=== PATIENT | female | born 1960 | race American Indian/Alaskan Native ===

== ENCOUNTER 2017-11-14 09:09 | Outpatient (CLI) | payer BC ==
--- NOTE | 2017-11-15 10:09 | Mammography Report ---
BILATERAL DIGITAL SCREENING MAMMOGRAM with CAD: 11/14/17 09:09:00 CLINICAL: Routine screening. COMPARISON: None available. Her previous mammograms have been its JEFE. FINDINGS: The breasts are mostly fatty with bilateral residual retroareolar fibroglandular densities.No mass, architectural distortion or suspicious calcifications. IMPRESSION: No mammographic evidence of malignancy. BI-RADS CATEGORY: 1 -- Negative RECOMMENDATION: Routine mammographic screening in one year. COMMENT: Patient follow-up letters are generated by our [employer] application.
== END 2017-11-14 09:10 | disposition home or self-care (01) ==
LOC: SPVWC 09:09
PROVIDERS: ATTEND Internal Medicine
DX: Z12.31 Encounter for screening mammogram for malignant neoplasm of breast (principal); I10 Essential (primary) hypertension; J45.909 Unspecified asthma, uncomplicated
CPT/HCPCS: 77067; G0202

== ENCOUNTER 2018-01-30 10:30 | Outpatient (CLI) | payer BC ==
--- NOTE | 2018-01-30 11:28 | XRay Report ---
XRAY CHEST TWO VIEWS: 01/30/18 10:30:00 CLINICAL: Cough. COMPARISON: 01/08/11 FINDINGS: Normal heart and pulmonary vasculature. The lungs are normally expanded and clear.Degenerative change in the spine. IMPRESSION: No acute cardiopulmonary process.
== END 2018-01-30 10:31 | disposition home or self-care (01) ==
LOC: SPVIMAG 10:30
PROVIDERS: ATTEND Internal Medicine
DX: R05 Cough (principal); M47.894 Other spondylosis, thoracic region
CPT/HCPCS: 71046

== ENCOUNTER 2020-11-11 14:31 | Emergency (ER) | payer BC ==
--- NOTE | 2020-11-11 14:35 | Emergency Department Report ---
Blank Doc - Documentation Documentation: 60-year-old female that presents with bilateral hand/wrist dog bites. Animal control notified. Denies knowing if rabies active. This initial assessment/diagnostic orders/clinical plan/treatment(s) is/are subject to change based on patient's health status, clinical progression and re- assessment by fellow clinical providers in the ED. Further treatment and workup at subsequent clinical providers discretion. Patient/guardians urged not to elope from the ED as their condition may be serious if not clinically assessed and managed. Initial orders include: 1- Patient sent to [facility] for further evaluation and treatment 2- xrays 3- rabies vaccines
[2020-11-11 14:39] VITALS: BP 144/79
--- NOTE | 2020-11-11 15:12 | XRay Report ---
BOTH HANDS 6 VIEWS INDICATION / CLINICAL INFORMATION: bog bite please add right wrist. COMPARISON: None available. FINDINGS: Bandage overlies the right hand. There is soft tissue swelling of the right thumb and index finger, b ut I see no fracture or other skeletal abnormality. No radiopaque foreign bodies. Signer Name: Tab Cisneros MD Signed: 11/11/2020 3:08 PM Workstation Name: [id number]
[2020-11-11] MEDS ORDERED: SODIUM CHLORIDE IRRI 500 ML 1,000 ML IR ONE (15:16)
[2020-11-11] MEDS ORDERED: cephALEXin 500 MG CAP PO ONE (15:21)
[2020-11-11] MEDS ORDERED: RABIES IMMUNE GLOBULIN P/F 300 UNIT/ML INJ 5 ML IM ONE (15:21)
[2020-11-11] MEDS ORDERED: oxyCODONE /ACETAMINOPHEN 5-325MG TAB PO ONE (15:21)
[2020-11-11] MEDS ORDERED: DIPHtheria,PERTUSSIS(ACELL),TETANUS VACCINE/PF 0.5 ML VIAL IM ONE (15:21)
--- NOTE | 2020-11-11 15:21 | Emergency Department Report ---
ED Animal Bite HPI - General Chief Complaint: Animal Bite Stated Complaint: BILATERAL HAND/DOG BITE Time Seen by Provider: 11/11/20 14:32 Source: patient Mode of arrival: Ambulatory Limitations: No Limitations - History of Present Illness Initial Comments: Patient is a 60-year-old that comes to the ER after being attacked by her neighbors yojana. Patient states animal control was called. Immunization of the dog is not known. Patient wants to receive rabies vaccines. She will also need a Tdap. Patient has puncture wounds and lacerations to bilateral hands. On the right hand it involves her involves the dorsal and palmar surface. Left hand involves the palmar surface. Wounds were wrapped in triage bleeding controlled. MD Complaint: animal bite -: Sudden, hour(s) Left: Hand, Right: Hand Animal: dog Animal Control Notified: Yes Description: household pet Mechanism: bite Pain Description: sharp Context: unprovoked Associated Symptoms: none Treatments Prior to Arrival: wound dressing(s) - Related Data Patient Tetanus UTD: No Previous Rx's Medication Instructions Recorded Last Taken Type cephALEXin [Keflex] 500 mg PO Q8H #30 cap 11/11/20 Unknown Rx traMADoL [Ultram] 50 mg PO Q6HR PRN #10 tablet 11/11/20 Unknown Rx Allergies Allergy/AdvReac Type Severity Reaction Status Date / Time codeine Allergy Rash Verified 12/05/14 16:56 ondansetron HCl Allergy Itching Verified 12/05/14 16:56 [From Zofran (as hydrochloride)] Penicillins Allergy Rash Verified 12/05/14 16:56 Sulfa (Sulfonamide Allergy Rash Verified 12/05/14 16:56 Antibiotics) ED Review of Systems ROS: Stated complaint: BILATERAL HAND/DOG BITE Other details as noted in HPI Comment: All other systems reviewed and negative ED Past Medical Hx - Past Medical History Previous Medical History?: Yes Hx Hypertension: Yes Hx Asthma: Yes Additional medical history: colitis (sees Dr. Gunn) - Surgical History Past Surgical History?: No - Family History Family history: no significant - Social History Smoking Status: Never Smoker Substance Use Type: None - Medications Home Medications: Home Medications Medication Instructions Recorded Confirmed Last Taken Type cephALEXin [Keflex] 500 mg PO Q8H #30 cap 11/11/20 Unknown Rx traMADoL [Ultram] 50 mg PO Q6HR PRN #10 tablet 11/11/20 Unknown Rx ED Physical Exam - General Limitations: No Limitations General appearance: alert, in no apparent distress - Head Head exam: Present: atraumatic, normocephalic - Eye Eye exam: Present: normal appearance - ENT ENT exam: Present: mucous membranes moist - Neck Neck exam: Present: normal inspection - Respiratory Respiratory exam: Present: normal lung sounds bilaterally. Absent: respiratory distress - Cardiovascular Cardiovascular Exam: Present: regular rate, normal rhythm. Absent: systolic murmur, diastolic murmur, rubs, gallop - GI/Abdominal GI/Abdominal exam: Present: soft, normal bowel sounds - Extremities Exam Extremities exam: Present: normal inspection - Back Exam Back exam: Present: normal inspection - Neurological Exam Neurological exam: Present: alert, oriented X3 - Psychiatric Psychiatric exam: Present: normal affect, normal mood - Skin Skin exam: Present: warm, dry, other (Patient has numerous puncture wounds on bilateral hands, right greater than left. Patient has full range of motion of all digits and wrist. Radial ulnar and medial nerves intact. Sensation intact. Radial and ulnar pulses intact. Bleeding controlled.). Absent: rash ED Course Vital Signs 11/11/20 14:36 Temperature 97.5 F L Pulse Rate 83 Respiratory 18 Rate Blood Pressure 144/79 O2 Sat by Pulse 99 Oximetry - Reevaluation(s) Reevaluation #1: 11/11/20 15:54 Has been noted. Tdap given. Wound care given Rabies given per pharmacy recommendations and regimen. Patient educated on follow-up care that she requires. She verbalizes understanding. Critical care attestation.: If time is entered above; I have spent that time in minutes in the direct care of this critically ill patient, excluding procedure time. ED Disposition Clinical Impression: Dog bite, Open wounds of multiple sites of hand, Rabies vaccine adverse reaction Disposition: DC-01 TO HOME OR SELFCARE Is pt being admited?: No Does the pt Need Aspirin: No Condition: Stable Instructions: Animal Bite, Adult, [id number], Rabies Immune Globulin, human RIG solution for injection, Rabies, Animal Bite, Adult Additional Instructions: Follow-up with PCP in 48 hours to make sure you are getting better and responding to the antibiotics with no infection. Motrin or Tylenol can be used for mild pain. Ultram can be used for severe pain. Stay well-hydrated. Follow-up for rabies vaccination as instructed. Diet and activity as tolerated. Tetanus was updated today. X-ray was normal today. Follow-up with animal control regarding the rabies vaccination of the animal. Take antibiotics until completely gone. Twice per day should take the dressings down clean the wounds with soap and water apply an antibacterial ointment and rewrap in a large bulky dressing. Do this until such time that the wounds are healed. Prescriptions: cephALEXin [Keflex] 500 mg PO Q8H #30 cap traMADoL [Ultram] 50 mg PO Q6HR PRN #10 tablet PRN Reason: Pain Referrals: JN PEREZ MD [Staff Physician] - 3-5 Days Time of Disposition: 15:26
[2020-11-11] MEDS ORDERED: SODIUM CHLORIDE 0.9% IRR 500 ML BOTTLE IR ONE ×2 (15:22→17:10)
[2020-11-11] MEDS ORDERED: NEOMY 3.5 MG/BACIT 400 UNITS/POLY B 5000 UNITS/GM OINT PACKET TP ONE (15:22)
[2020-11-11] MEDS ORDERED: RABIES VACCINE, HUMAN DIPLOID/PF 2.5 UNIT/ML VIAL IM ONE (15:30)
[2020-11-11] MEDS ORDERED: HYDROmorphone 1 MG/1 ML INJ IM ONE (16:36)
== END 2020-11-11 17:42 | disposition home or self-care (01) ==
LOC: ED 14:31
DX: S61.452A Open bite of left hand, initial encounter (principal); S61.451A Open bite of right hand, initial encounter; T88.1XXA Other complications following immunization, not elsewhere classified, initial encounter; I10 Essential (primary) hypertension; J45.909 Unspecified asthma, uncomplicated; Z79.899 Other long term (current) drug therapy; W54.0XXA Bitten by dog, initial encounter; Y93.89 Activity, other specified; Y92.89 Other specified places as the place of occurrence of the external cause; Y99.8 Other external cause status
CPT/HCPCS: 73130; 90375; 90471; 90472; 90675; 90715; 96372; 99284; A6250; J1170